=== PATIENT | male | born 1960 | race African-American/Black ===

== ENCOUNTER → 2017-12-05 | Outpatient (CLI) | payer OTHER ==
[~2017-12-05] VITALS: Ht 171.4 cm; Wt 112.4 kg
[~2017-12-05] MED LIST: ADULT ASPIRIN81 MG PO; ERGOCALCIF50000 UNIT PO; IBUPROFEN800 MG PO; METOPROLOL TART25 MG PO; MULTI VITAMIN1 EACH PO; NORVASC10 MG PO; PLAVIX75 MG PO; POTASSIUM CHLOR8 ME2 PO; PROTONIX40 MG PO
== END | disposition home or self-care (01) ==
LOC: AMB 09:00
DX: Z12.11 Encounter for screening for malignant neoplasm of colon (principal); K57.30 Diverticulosis of large intestine without perforation or abscess without bleeding; K62.1 Rectal polyp; K64.8 Other hemorrhoids; K63.89 Other specified diseases of intestine; Z80.0 Family history of malignant neoplasm of digestive organs; Z83.71 Family history of colonic polyps; I10 Essential (primary) hypertension; I25.10 Atherosclerotic heart disease of native coronary artery without angina pectoris; E78.5 Hyperlipidemia, unspecified; E66.01 Morbid (severe) obesity due to excess calories; Z82.3 Family history of stroke; Z80.42 Family history of malignant neoplasm of prostate; Z83.3 Family history of diabetes mellitus; Z80.1 Family history of malignant neoplasm of trachea, bronchus and lung; Z87.891 Personal history of nicotine dependence; Z88.8 Allergy status to other drugs, medicaments and biological substances
CPT/HCPCS: 88305; J2250

== ENCOUNTER 2018-01-05 22:35 | Emergency (ER) | payer OTHER ==
[~2018-01-05] VITALS: Ht 167.6 cm; Wt 114.5 kg
[2018-01-05] MEDS ORDERED: LEVAQUIN750 MG PO (23:58)
[2018-01-05] MEDS ORDERED: PROVENTIL HFA6.7 GM IH (23:58)
[2018-01-06 00:48] VITALS: BP 136/68
== END 2018-01-06 00:49 | disposition home or self-care (01) ==
LOC: EME 22:35
DX: R05 Cough (principal); R50.9 Fever, unspecified; I10 Essential (primary) hypertension; K21.9 Gastro-esophageal reflux disease without esophagitis; I25.2 Old myocardial infarction; Z79.02 Long term (current) use of antithrombotics/antiplatelets; Z79.82 Long term (current) use of aspirin; Z87.891 Personal history of nicotine dependence
CPT/HCPCS: 94640; 99281; 99284

== ENCOUNTER 2018-01-21 16:35 | Inpatient (IN) | payer OTHER ==
[~2018-01-21] VITALS: Ht 167.6 cm; Wt 109.1 kg
[~2018-01-21 16:35] MED LIST changes: +LEVAQUIN750 MG PO; +PROVENTIL HFA6.7 GM IH
[2018-01-21 17:03] LABS: HEMATOCRIT 39.2 % (38.0-50.0); HEMOGLOBIN 13.1 G/DL (12.5-16.6); MCH 32.8 PG (29.0-34.0); MCHC 33.4 G/DL (30.0-36.0); MCV 98.2 FL (86-99); PLATELET COUNT 354 K/uL (156-360); RBC DIS.WIDTH-CV 12.9 % (11.8-14.6); RBC DIS.WIDTH-SD 46.5 % (39-53); RED BLOOD COUNT 3.99 M/uL (4.00-5.50); WHITE BLOOD COUNT 7.9 K/uL (4.1-10.2)
[2018-01-21 17:10] LABS: PTT 25.3 SEC (25-37)
[2018-01-21 17:11] LABS: CHLORIDE 102 mEq/L (99-109); POTASSIUM 4.3 mEq/L (3.7-5.4); SODIUM 138 mEq/L (136-147)
[2018-01-21 17:13] LABS: GLUCOSE 117 mg/dL (70-99)
[2018-01-21 17:17] LABS: CREATININE 1.9 mg/dL (0.6-1.3); GFR ESTIMATE (CALCULATED) 47 mL/min/ (58.99-99999)
[2018-01-21 17:18] LABS: UREA NITROGEN (BUN) 18 mg/dL (9-23)
[2018-01-21 17:23] LABS: TROP-I INTERPRETATION NEGATIVE; TROPONIN-I 0.05 ng/mL (0.0-0.30)
[2018-01-21 17:53] LABS: BASOPHIL (%) 0.4 % (0-1); EOSINOPHIL (%) 1.3 % (0-5); EOSINOPHIL COUNT 0.1 K/uL (0-0.3); LYMPHOCYTE (%) 30.2 % (15-42); LYMPHOCYTE COUNT 2.4 K/uL (1.0-2.8); MONOCYTE (%) 11.2 % (3-12); MONOCYTE COUNT 0.9 K/uL (0-0.8); NEUTROPHIL (%) 55.9 % (45-76); NEUTROPHIL COUNT 4.4 K/uL (1.8-6.4)
[2018-01-21 18:26] LABS: HDL CHOLESTEROL 37 MG/DL (Desirable>=40); LDL CHOLESTEROL 99 mg/dL (Desirable<100); NON-HDL CHOLESTEROL 121 mg/dL (Desirable<160); TOTAL CHOLESTEROL 158 mg/dL (Desirable<200); TRIGLYCERIDES 108 MG/DL (Normal: <150)
[2018-01-21] MEDS ORDERED: K-DUR20 MEQ PO (19:07)
[2018-01-21] MEDS ORDERED: CLARITIN,ALAVAR10 MG PO (19:07)
[2018-01-21] MEDS ORDERED: VENTOLIN HFA18 GM IH (19:08)
[2018-01-21 21:03] LABS: APPEARANCE SL.HAZY ((CLEAR)); BILIRUBIN NEGATIVE; BLOOD NEGATIVE; COLOR YELLOW ((YELLOW)); GLUCOSE (STRIP) NEGATIVE; KETONES NEGATIVE; LEUKOCYTES TRACE; NITRITE NEGATIVE; PROTEIN (STRIP) NEGATIVE; UROBILINOGEN 0.2 MG/DL (0.2-1.0)
[2018-01-21 21:43] LABS: TROP-I INTERPRETATION NEGATIVE; TROPONIN-I 0.05 ng/mL (0.0-0.30)
[2018-01-21 21:46] LABS: EPITHELIAL CELLS RARE /HPF; RED BLOOD CELLS 0-5 /HPF (0-5); WHITE BLOOD CELLS 0-5 /HPF (0-5)
[2018-01-21 21:47] LABS: BACTERIA RARE /HPF; MUCUS 2+ /LPF; UCUL ADDED? NO
[2018-01-21 21:48] LABS: URIC ACID CRYSTALS 2+ /HPF
[2018-01-21 22:02] LABS: HDL CHOLESTEROL 31 MG/DL (Desirable>=40); LDL CHOLESTEROL 81 mg/dL (Desirable<100); MAGNESIUM 1.8 mg/dl (1.3-2.7); NON-HDL CHOLESTEROL 118 mg/dL (Desirable<160); PHOSPHORUS 3.8 mg/dL (2.5-4.9); TOTAL CHOLESTEROL 149 mg/dL (Desirable<200); TOTAL CK 1181 IU/L (1-294); TRIGLYCERIDES 184 MG/DL (Normal: <150)
[2018-01-21 22:08] LABS: CREATINE KINASE 1181 IU/L (1-294)
[2018-01-21 22:09] VITALS: BP 113/60
[2018-01-21 22:40] LABS: CK-MB 12.1 ng/mL (0.0-4.9)
[2018-01-22 03:49] VITALS: BP 119/62
[2018-01-22 06:17] LABS: HEMATOCRIT 36.1 % (38.0-50.0); HEMOGLOBIN 11.5 G/DL (12.5-16.6); MCH 32.4 PG (29.0-34.0); MCHC 31.9 G/DL (30.0-36.0); MCV 101.7 FL (86-99); PLATELET COUNT 289 K/uL (156-360); RBC DIS.WIDTH-CV 13.2 % (11.8-14.6); RBC DIS.WIDTH-SD 49.4 % (39-53); RED BLOOD COUNT 3.55 M/uL (4.00-5.50); WHITE BLOOD COUNT 5.5 K/uL (4.1-10.2)
[2018-01-22 06:33] LABS: TROP-I INTERPRETATION NEGATIVE; TROPONIN-I 0.04 ng/mL (0.0-0.30)
[2018-01-22 06:49] LABS: ALBUMIN 3.1 G/DL (3.2-4.8); ALKALINE PHOSPHATASE 74 IU/L (3-129); ALT (GPT) 20 IU/L (3-49); AST (GOT) 26 IU/L (2-34); CHLORIDE 109 MEQ/L (99-109); GFR ESTIMATE (CALCULATED) > 59 mL/min/ (58.99-99999); GLUCOSE 148 mg/dL (70-99); POTASSIUM 4.1 MEQ/L (3.7-5.4); SODIUM 139 MEQ/L (136-147); TOTAL BILIRUBIN 0.4 MG/DL (0.0-1.0); TOTAL PROTEIN 5.7 G/DL (6.4-8.3); UREA NITROGEN (BUN) 16 mg/dL (9-23)
[2018-01-22 06:50] LABS: CREATININE 1.3 MG/DL (0.6-1.3)
[2018-01-22 07:21] VITALS: BP 127/77
[2018-01-22 12:00] VITALS: BP 121/94
[2018-01-22 16:38] VITALS: BP 122/72
[2018-01-22 19:33] VITALS: BP 133/82
[2018-01-22 23:00] VITALS: BP 117/72
[2018-01-23 03:51] VITALS: BP 111/14
[2018-01-23 06:09] LABS: ALBUMIN 3.9 G/DL (3.2-4.8); CHLORIDE 105 MEQ/L (99-109); GFR ESTIMATE (CALCULATED) > 59 mL/min/ (58.99-99999); MAGNESIUM 1.9 mg/dl (1.3-2.7); PHOSPHORUS 2.9 mg/dL (2.5-4.9); POTASSIUM 4.3 MEQ/L (3.7-5.4); SODIUM 138 MEQ/L (136-147); UREA NITROGEN (BUN) 12 mg/dL (9-23); URIC ACID 6.8 mg/dL (3.1-9.2)
[2018-01-23 06:11] LABS: GLUCOSE 97 mg/dL (70-99)
[2018-01-23 07:37] VITALS: BP 124/66
[2018-01-23 07:42] LABS: INTACT PARATHYROID HORMONE 94 pg/mL (10-69)
[2018-01-23 11:26] VITALS: BP 137/97
[2018-01-23] MEDS ORDERED: VITAMIN D-32000 UNI2 PO (13:35)
== END 2018-01-23 15:05 | disposition home or self-care (01) | DRG 92 ==
LOC: EME 16:35 → 5SOUTH 19:41 → EDOF 19:41 → ENRESERV 19:42 → 5SOUTH 22:00
PROVIDERS: Internal Medicine; Internal Medicine Nephrology
DX: R20.0 Anesthesia of skin (principal); M62.82 Rhabdomyolysis; N17.9 Acute kidney failure, unspecified; G72.9 Myopathy, unspecified; E83.51 Hypocalcemia; R73.9 Hyperglycemia, unspecified; K21.9 Gastro-esophageal reflux disease without esophagitis; I10 Essential (primary) hypertension; G47.30 Sleep apnea, unspecified; I27.20 Pulmonary hypertension, unspecified; E78.5 Hyperlipidemia, unspecified; E78.00 Pure hypercholesterolemia, unspecified; R74.8 Abnormal levels of other serum enzymes; I25.10 Atherosclerotic heart disease of native coronary artery without angina pectoris; I25.2 Old myocardial infarction; Z79.02 Long term (current) use of antithrombotics/antiplatelets; Z79.82 Long term (current) use of aspirin; Z87.891 Personal history of nicotine dependence; Z95.5 Presence of coronary angioplasty implant and graft
CPT/HCPCS: 70450; 70551; 76770; 80047; 80048; 80053; 80061; 80069; 81003; 82306; 82310; 82330; 82550 91; 82553; 83036; 83735; 83970; 84100; 84484; 84550; 85025; 85027; 85610; 85730; 92610 GN; 93005; 93880; 99202; 99281; 99285; J1644; J7030

== ENCOUNTER 2018-01-29 08:57 | Day surgery (SDC) | payer OTHER ==
[~2018-01-29] VITALS: Ht 170.2 cm; Wt 108.8 kg
[~2018-01-29 08:57] MED LIST changes: +CLARITIN,ALAVAR10 MG PO; +K-DUR20 MEQ PO; +NEURONTIN300 MG PO; +VENTOLIN HFA18 GM IH; +VITAMIN D-32000 UNI2 PO
== END 2018-01-29 11:00 | disposition home or self-care (01) ==
LOC: PAIN 08:57 → SDC 09:15 → PAIN 09:15
DX: M47.816 Spondylosis without myelopathy or radiculopathy, lumbar region (principal); M25.512 Pain in left shoulder; G89.29 Other chronic pain; M51.36 Other intervertebral disc degeneration, lumbar region; M46.96 Unspecified inflammatory spondylopathy, lumbar region; I25.2 Old myocardial infarction; I10 Essential (primary) hypertension; E03.9 Hypothyroidism, unspecified; I44.0 Atrioventricular block, first degree; Z86.73 Personal history of transient ischemic attack (TIA), and cerebral infarction without residual deficits; Z87.891 Personal history of nicotine dependence; Z79.02 Long term (current) use of antithrombotics/antiplatelets; Z79.82 Long term (current) use of aspirin
CPT/HCPCS: J1030; J2250; S0020

== ENCOUNTER 2018-02-12 08:47 | Day surgery (SDC) | payer OTHER ==
[~2018-02-12] VITALS: Ht 170.2 cm; Wt 108.4 kg
== END 2018-02-12 10:45 | disposition home or self-care (01) ==
LOC: PAIN 08:47 → SDC 09:15 → PAIN 09:15
DX: M47.816 Spondylosis without myelopathy or radiculopathy, lumbar region (principal); M51.36 Other intervertebral disc degeneration, lumbar region; M25.512 Pain in left shoulder; G89.29 Other chronic pain; I10 Essential (primary) hypertension; I25.10 Atherosclerotic heart disease of native coronary artery without angina pectoris; E78.5 Hyperlipidemia, unspecified; E03.9 Hypothyroidism, unspecified; R94.31 Abnormal electrocardiogram [ECG] [EKG]; Z95.5 Presence of coronary angioplasty implant and graft; I25.2 Old myocardial infarction; Z86.73 Personal history of transient ischemic attack (TIA), and cerebral infarction without residual deficits; Z87.891 Personal history of nicotine dependence; Z79.82 Long term (current) use of aspirin; Z79.02 Long term (current) use of antithrombotics/antiplatelets
CPT/HCPCS: J1030; J2250; S0020